=== PATIENT | male | born 1935 | race Caucasian/White ===

== ENCOUNTER 2018-01-10 18:50 | Observation (INO) | payer MEDICARE, BC ==
[2018-01-10] MEDS ORDERED: Sodium Chloride 0.9% 10 ML Syringe FLUSH PRN (19:17)
[2018-01-10] MEDS ORDERED: Sodium Chloride 0.9% 1,000 ML IV ONE (19:18)
--- NOTE | 2018-01-10 19:23 | EDM.PDOC ---
ED HPI GENERAL MEDICAL PROBLEM - General Chief Complaint: Fever Stated Complaint: Fever Time Seen by Provider: 01/10/18 19:13 Source of Information: Reports: Patient, Family, RN, RN Notes Reviewed History Limitations: Reports: No Limitations - History of Present Illness INITIAL COMMENTS - FREE TEXT/NARRATIVE: Patient presents to the ED at [facility] with a one day history of fever, chills, weakness. Patient states he feels somewhat nauseated. No chest pain. He is chronically SOB due to COPD. No cough. He denies any diarrhea. No close contacts with similar symptoms. Patient states he did have a 101.4 temp at home. He was given Tylenol prior to presentation. Onset: Today General Body Aches Pain Score (Numeric/FACES): 2 - Related Data Allergies Allergy/AdvReac Type Severity Reaction Status Date / Time aspirin Allergy Respiratory Verified 01/10/18 19:20 Distress lisinopril Allergy Wheezing Verified 01/10/18 19:20 Penicillins Allergy Cannot Verified 01/10/18 19:20 Remember Sulfa (Sulfonamide Allergy Cannot Verified 01/10/18 19:20 Antibiotics) Remember Tetracyclines Allergy Cannot Verified 01/10/18 19:20 Remember Home Meds: Home Meds Fluticasone/Salmeterol [Advair 500-50] 1 puff INH BID 09/16/13 [History] Flecainide [Tambocor] 50 mg PO BID 09/22/13 [History] Montelukast [Singulair] 10 mg PO DAILY 09/22/13 [History] Simvastatin [Zocor] 20 mg PO BEDTIME 09/22/13 [History] ALPRAZolam [Alprazolam] 0.5 mg PO BEDTIME PRN 08/10/17 [History] Albuterol Sulfate [Ventolin Hfa] 2 puff IH Q4HR PRN 08/10/17 [History] Cholecalciferol (Vitamin D3) [Vitamin D3] 2,000 unit PO DAILY 08/10/17 [History] Cyanocobalamin (Vitamin B-12) [B-12] 1,000 mcg PO DAILY 08/10/17 [History] FLUoxetine HCl [Fluoxetine HCl] 40 mg PO DAILY 08/10/17 [History] Hydrocodone/Acetaminophen [Hydrocodon-Acetaminophn 10-325] 1 each PO Q4HR PRN [History] Levothyroxine Sodium [Synthroid] 100 mcg PO DAILY 08/10/17 [History] Phytonadione [Vitamin K] 100 mcg PO DAILY 08/10/17 [History] Suzbtnnrrxfivut-Cbilirs-Kxcykd 10 ml PO Q4H PRN 08/10/17 [History] Tiotropium [Spiriva HandiHaler] 18 mcg INH DAILY 08/10/17 [History] Warfarin [Coumadin] 5 - 7.5 mg PO ASDIRECTED 08/10/17 [History] Albuterol/Ipratropium [DuoNeb 3.0-0.5 MG/3 ML] 3 ml NEB QIDRT neb 08/12/17 [Rx] Levofloxacin [Levaquin] 750 mg PO Q24H 5 Days tablet 08/12/17 [Rx] Prednisone [IJD: predniSONE] 40 mg PO WITHBREAKFAST tablet 08/12/17 [Rx] Warfarin [Coumadin] 7.5 mg PO SuTuThSa@2000 tablet 08/12/17 [Rx] Warfarin [Coumadin] 7.5 mg PO SuTuThSa@2000 tablet 08/12/17 [Rx] Past Medical History HEENT History: Reports: Allergic Rhinitis Cardiovascular History: Reports: Afib, Heart Failure, Heart Murmur, High Cholesterol Other Cardiovascular History: Bad valve Respiratory History: Reports: Asthma, Bronchitis, Recurrent, COPD Gastrointestinal History: Reports: Colon Polyp Musculoskeletal History: Reports: Other (See Below) Other Musculoskeletal History: Kyphosis Neurological History: Reports: Headaches, Chronic Psychiatric History: Reports: Anxiety - Past Surgical History GI Surgical History: Reports: Colonoscopy, Polypectomy Social & Family History - Family History Family Medical History: Noncontributory - Tobacco Use Smoking Status *Q: Never Smoker Used Tobacco, but Quit: No Second Hand Smoke Exposure: No - Alcohol Use Days Per Week of Alcohol Use: 7 Number of Drinks Per Day: 1 Total Drinks Per Week: 7 - Recreational Drug Use Recreational Drug Use: No Drug Use in Last 12 Months: No - Living Situation & Occupation Living situation: Reports: , with Spouse Occupation: Retired ED ROS GENERAL - Review of Systems Review Of Systems: See Below Constitutional: Reports: Fever, Chills, Weakness, Fatigue. Denies: Decreased Appetite Respiratory: Reports: Shortness of Breath (chronic). Denies: Cough Cardiovascular: Denies: Chest Pain, Palpitations GI/Abdominal: Denies: Abdominal Pain, Nausea, Vomiting Skin: Reports: No Symptoms Neurological: Reports: No Symptoms ED EXAM, SEPSIS - Physical Exam Exam: See Below Exam Limited By: No Limitations General Appearance: Alert, No Apparent Distress Respiratory/Chest: No Respiratory Distress, Decreased Breath Sounds, Rhonchi Cardiovascular: Normal Peripheral Pulses, Irregularly Irregular Peripheral Pulses: 2+: Radial (L), Radial (R) GI/Abdominal Exam: Normal Bowel Sounds, Soft, Non-Tender Neurological: Alert, Oriented Skin: Warm, Dry, Intact, Normal Color EKG INTERPRETATION EKG Date: 01/10/18 Time: 19:11 Rhythm: A-Fib Rate (Beats/Min): 99 [place]: Normal P-Wave: Absent QRS: Normal ST-T: Normal QT: Normal FL/PQ Interval: Absent Comparison: No Change EKG Interpretation Comments: 1. Atrial Fibrillation 2. Left anterior fascicular block 3. Nonspecific ST & T-wave abnormality Course - Vital Signs Last Recorded V/S: Last Vital Signs Temp 36.9 C 01/10/18 20:10 Pulse 90 01/10/18 20:10 Resp 20 01/10/18 20:10 BP 124/70 01/10/18 20:10 Pulse Ox 93 L 01/10/18 20:10 - Orders/Labs/Meds Orders: Active Orders 24 hr Category Date Time Status Admission Status [Patient Status] [ADT] Routine ADT 01/10/18 20:38 Active Chest 1V Frontal [CR] Stat Exams 01/10/18 19:16 Taken CULTURE BLOOD [BC] Stat Lab 01/10/18 19:00 Received CULTURE BLOOD [BC] Stat Lab 01/10/18 19:30 Received UA W/MICROSCOPIC [URIN] Stat Lab 01/10/18 19:41 Ordered Levofloxacin/Dextrose 5%-Water [Levaquin in D5W 500 MG/ Med 01/10/18 20:26 Active 100 ML] 500 mg Premix Bag 1 bag IV ONETIME Sodium Chloride 0.9% [Saline Flush] Med 01/10/18 19:17 Active 10 ml FLUSH ASDIRECTED PRN Blood Culture x2 Reflex Set [OM.PC] Stat Oth 01/10/18 19:16 Ordered Peripheral IV Insertion Adult [OM.PC] Routine Oth 01/10/18 19:17 Ordered Medication Orders Levofloxacin/Dextrose 500 mg/ (Premix) 100 mls @ 100 mls/hr IV ONETIME ONE Stop: 01/10/18 21:25 Last Admin: 01/10/18 20:35 Dose: 100 mls/hr Sodium Chloride (Saline Flush) 10 ml FLUSH ASDIRECTED PRN PRN Reason: Keep Vein Open Labs: Laboratory Tests 01/10/18 01/10/18 01/10/18 Range/Units 19:00 19:00 19:00 WBC 15.4 H (4.0-10.0) x10^3/uL RBC 4.20 L (4.5-6.0) x10^6/uL Hgb 13.7 L D (14.0-18.0) g/dL Hct 41.8 (40.0-52.0) % MCV 99.5 H (78.0-93.0) fL MCH 32.6 H (26.0-32.0) pg MCHC 32.8 (32.0-36.0) g/dL RDW Coeff of Bharati 14.0 (10.0-15.0) % Plt Count 233 (130-400) x10^3/uL Neut % (Auto) 79.9 (50.0-80.0) % Lymph % (Auto) 11.6 L (25.0-50.0) % Bartholomew % (Auto) 6.5 (2.0-11.0) % Eos % (Auto) 1.8 (0.0-4.0) % Baso % (Auto) 0.2 (0.2-1.2) % PT (9.8-11.8) SEC INR (2.0-3.5) D-Dimer, Quantitative (<=0.58) mg/LFEU Sodium 140 (136-145) mmol/L Potassium 3.9 (3.5-5.1) mmol/L Chloride 103 (98-107) mmol/L Carbon Dioxide 26 (21-32) mmol/L BUN 20 H (7-18) mg/dL Creatinine 1.1 (0.70-1.30) mg/dL Est Cr Clr Drug Dosing 48.36 mL/min Estimated GFR (MDRD) > 60 Glucose 152 H (74-106) mg/dL Lactic Acid 1.5 (0.4-2.0) mmol/L Calcium 8.9 (8.5-10.1) mg/dL Corrected Calcium 9.14 (8.5-10.1) mg/dL Total Bilirubin 0.8 (0.2-1.0) mg/dL AST 34 (15-37) U/L ALT 55 (16-63) U/L Alkaline Phosphatase 78 (46-116) U/L C-Reactive Protein 0.3 (<=0.9) mg/dL Total Protein 7.0 (6.4-8.2) g/dL Albumin 3.7 (3.4-5.0) g/dL Globulin 3.3 Albumin/Globulin Ratio 1.12 01/10/18 Range/Units 19:00 WBC (4.0-10.0) x10^3/uL RBC (4.5-6.0) x10^6/uL Hgb (14.0-18.0) g/dL Hct (40.0-52.0) % MCV (78.0-93.0) fL MCH (26.0-32.0) pg MCHC (32.0-36.0) g/dL RDW Coeff of Bharati (10.0-15.0) % Plt Count (130-400) x10^3/uL Neut % (Auto) (50.0-80.0) % Lymph % (Auto) (25.0-50.0) % Bartholomew % (Auto) (2.0-11.0) % Eos % (Auto) (0.0-4.0) % Baso % (Auto) (0.2-1.2) % PT 19.7 H D (9.8-11.8) SEC INR 1.9 L (2.0-3.5) D-Dimer, Quantitative 1.53 H (<=0.58) mg/LFEU Sodium (136-145) mmol/L Potassium (3.5-5.1) mmol/L Chloride (98-107) mmol/L Carbon Dioxide (21-32) mmol/L BUN (7-18) mg/dL Creatinine (0.70-1.30) mg/dL Est Cr Clr Drug Dosing mL/min Estimated GFR (MDRD) Glucose (74-106) mg/dL Lactic Acid (0.4-2.0) mmol/L Calcium (8.5-10.1) mg/dL Corrected Calcium (8.5-10.1) mg/dL Total Bilirubin (0.2-1.0) mg/dL AST (15-37) U/L ALT (16-63) U/L Alkaline Phosphatase (46-116) U/L C-Reactive Protein (<=0.9) mg/dL Total Protein (6.4-8.2) g/dL Albumin (3.4-5.0) g/dL Globulin Albumin/Globulin Ratio Meds: Medications Generic Name Dose Route Start Last Admin Trade Name Freq PRN Reason Stop Dose Admin Levofloxacin/Dextrose 500 mg/ 100 mls @ 100 mls/hr 01/10/18 20:26 01/10/18 20 :35 Premix IV 01/10/18 21:25 100 mls/hr ONETIME ONE Administration Sodium Chloride 10 ml 01/10/18 19:17 Saline Flush FLUSH ASDIRECTED PRN Keep Vein Open Discontinued Medications Generic Name Dose Route Start Last Admin Trade Name Freq PRN Reason Stop Dose Admin Sodium Chloride 1,000 mls @ 999 mls/hr 01/10/18 19:18 01/10/18 19:00 Normal Saline IV 01/10/18 20:18 999 mls/hr ONETIME ONE Administration Departure - Departure Time of Disposition: 20:44 Disposition: Refer to Observation Condition: Good Clinical Impression: Lung infiltrate, Leukocytosis - Discharge Information - Problem List & Annotations (1) Pulmonary infiltrate in right lung on CXR SNOMED Code(s): 664675004, 752537938 Code(s): R91.8 - OTHER NONSPECIFIC ABNORMAL FINDING OF LUNG FIELD Status: Acute Priority: Medium Current Visit: Yes (2) Leukocytosis SNOMED Code(s): 941640203, 546309813 Code(s): D72.829 - ELEVATED WHITE BLOOD CELL COUNT, UNSPECIFIED Status: Acute Priority: Medium Current Visit: Yes Qualifiers: Leukocytosis type: unspecified Qualified Code(s): D72.829 - Elevated white blood cell count, unspecified - Problem List Review Problem List Initiated/Reviewed/Updated: Yes - My Orders Last 24 Hours: My Active Orders 01/10/18 19:00 CULTURE BLOOD [BC] Stat 01/10/18 19:16 Chest 1V Frontal [CR] Stat Blood Culture x2 Reflex Set [OM.PC] Stat 01/10/18 19:17 Sodium Chloride 0.9% [Saline Flush] 10 ml FLUSH ASDIRECTED PRN Peripheral IV Insertion Adult [OM.PC] Routine 01/10/18 19:30 CULTURE BLOOD [BC] Stat 01/10/18 19:41 UA W/MICROSCOPIC [URIN] Stat 01/10/18 20:26 Levofloxacin/Dextrose 5%-Water [Levaquin in D5W 500 MG/100 ML] 500 mg Premix Bag 1 bag IV ONETIME 01/10/18 20:38 Admission Status [Patient Status] [ADT] Routine - Assessment/Plan Admission H&P: Please use this note as an admission H&P Last 24 Hours: My Active Orders 01/10/18 19:00 CULTURE BLOOD [BC] Stat 01/10/18 19:16 Chest 1V Frontal [CR] Stat Blood Culture x2 Reflex Set [OM.PC] Stat 01/10/18 19:17 Sodium Chloride 0.9% [Saline Flush] 10 ml FLUSH ASDIRECTED PRN Peripheral IV Insertion Adult [OM.PC] Routine 01/10/18 19:30 CULTURE BLOOD [BC] Stat 01/10/18 19:41 UA W/MICROSCOPIC [URIN] Stat 01/10/18 20:26 Levofloxacin/Dextrose 5%-Water [Levaquin in D5W 500 MG/100 ML] 500 mg Premix Bag 1 bag IV ONETIME 01/10/18 20:38 Admission Status [Patient Status] [ADT] Routine Assessment:: Right lower lung infiltrate Leukocytosis Plan: Patient meets sepsis criteria by RR and elevated WBC's only. Overall, patient does not appear to be acutely ill. Lactic acid and CRP normal. No fever. Xray does show a possible RLL infiltrate. Will admit to observation as I do not think the patient will need >48 hours of hospital care. Discussed with family at bedside. Agree with POC. Antibiotics were given late as the etiology of the Leukocytosis is not clear.
[2018-01-10 19:56] LABS: CHLORIDE,CL 103 mmol/L (98-107); SODIUM,NA 140 mmol/L (136-145)
[2018-01-10] MEDS ORDERED: Levofloxacin/Dextrose 5%-Water 500 MG in Premix Bag 1 BAG IV ONE (20:26)
[2018-01-10] MEDS ORDERED: Ondansetron 4 MG Tab.DIS PO PRN (21:07)
[2018-01-10] MEDS ORDERED: Acetaminophen 325 MG Tab PO PRN (21:07)
--- NOTE | 2018-01-10 21:36 | PCM.HP ---
H&P History of Present Illness - General Date of Service: 01/10/18 Admit Problem/Dx: Admission Diagnosis/Problem Admission Diagnosis/Problem Infiltrate of lung present on imaging of chest Leukocytosis Weakness Source of Information: Patient, Family, Old Records, RN, RN Notes Reviewed History Limitations: Reports: No Limitations - History of Present Illness Initial Comments - Free Text/Narative: Patient presented to the emergency room at [facility] earlier this evening with a chief complaint of fevers and weakness. The patient states that his symptoms began earlier today. According to the family patient had a fever of 101.6. The patient was given some Tylenol with good relief of the fever. The family was still concerned because the patient looked ill and still was not feeling well. The patient did not have any chest pain. The patient has chronic shortness of breath from COPD. The patient denied any abdominal pain. No nausea vomiting or diarrhea. The patient did not have any focal neurological deficits. The patient had considerable weakness of both lower extremities. The patient had been seen in clinic on every 2017 with concerns of a low- grade fever. It was felt at that time it was viral and he was sent home for symptomatic treatment. The patient again returned to the clinic on December 19 and was diagnosed with acute bronchitis and placed on azithromycin and Tessalon Pearles. The patient did finish the course of antibiotics. He states he did feel better up until today. The patient's blood work 4 days ago showed a normal white blood cell count of 8.1 and hemoglobin of 13.4. The patient has a history of chronic low hemoglobins. The patient's glucose 4 days ago was 68 with a B1 of 24. The patient's INR was therapeutic at 2.0. Onset of Symptoms: Reports: Today Symptom Onset Date: 01/10/18 General Body Aches Pain Score (Numeric/FACES): 2 - Related Data Allergies/Adverse Reactions: Allergies Allergy/AdvReac Type Severity Reaction Status Date / Time aspirin Allergy Respiratory Verified 01/10/18 19:20 Distress lisinopril Allergy Wheezing Verified 01/10/18 19:20 Penicillins Allergy Cannot Verified 01/10/18 19:20 Remember Sulfa (Sulfonamide Allergy Cannot Verified 01/10/18 19:20 Antibiotics) Remember Tetracyclines Allergy Cannot Verified 01/10/18 19:20 Remember Home Medications: Home Meds Flecainide [Tambocor] 50 mg PO BID 09/22/13 [History] Montelukast [Singulair] 10 mg PO DAILY 09/22/13 [History] Simvastatin [Zocor] 20 mg PO BEDTIME 09/22/13 [History] ALPRAZolam [Alprazolam] 0.5 mg PO BEDTIME PRN 08/10/17 [History] Albuterol Sulfate [Ventolin Hfa] 2 puff IH Q4HR PRN 08/10/17 [History] Cholecalciferol (Vitamin D3) [Vitamin D3] 2,000 unit PO DAILY 08/10/17 [History] Cyanocobalamin (Vitamin B-12) [B-12] 1,000 mcg PO DAILY 08/10/17 [History] FLUoxetine HCl [Fluoxetine HCl] 40 mg PO DAILY 08/10/17 [History] Hydrocodone/Acetaminophen [Hydrocodon-Acetaminophn 10-325] 1 each PO Q4HR PRN [History] Levothyroxine Sodium [Synthroid] 100 mcg PO DAILY 08/10/17 [History] Phytonadione [Vitamin K] 100 mcg PO DAILY 08/10/17 [History] Avoyejqpdymvfbv-Gnrfwat-Rgyeve 10 ml PO Q4H PRN 08/10/17 [History] Warfarin [Coumadin] 5 - 7.5 mg PO ASDIRECTED 08/10/17 [History] Albuterol/Ipratropium [DuoNeb 3.0-0.5 MG/3 ML] 3 ml NEB QIDRT neb 08/12/17 [Rx] Levofloxacin [Levaquin] 750 mg PO Q24H 5 Days tablet 08/12/17 [Rx] Warfarin [Coumadin] 7.5 mg PO SuTuThSa@2000 tablet 08/12/17 [Rx] Warfarin [Coumadin] 7.5 mg PO SuTuThSa@2000 tablet 08/12/17 [Rx] Prednisone [IJD: predniSONE] 5 mg PO WITHBREAKFAST 01/10/18 [History] Past Medical History HEENT History: Reports: Allergic Rhinitis Cardiovascular History: Reports: Afib, Heart Failure, Heart Murmur, High Cholesterol Other Cardiovascular History: Bad valve Respiratory History: Reports: Asthma, Bronchitis, Recurrent, COPD Gastrointestinal History: Reports: Colon Polyp Musculoskeletal History: Reports: Other (See Below) Other Musculoskeletal History: Kyphosis Neurological History: Reports: Headaches, Chronic Psychiatric History: Reports: Anxiety - Past Surgical History GI Surgical History: Reports: Colonoscopy, Polypectomy Social & Family History - Family History Family Medical History: Noncontributory - Tobacco Use Smoking Status *Q: Never Smoker Used Tobacco, but Quit: No Second Hand Smoke Exposure: No - Caffeine Use Caffeine Use: Reports: Tea - Alcohol Use Days Per Week of Alcohol Use: 7 Number of Drinks Per Day: 1 Total Drinks Per Week: 7 - Recreational Drug Use Recreational Drug Use: No Drug Use in Last 12 Months: No - Living Situation & Occupation Living situation: Reports: , with Spouse Occupation: Retired H&P Review of Systems - Review of Systems: Review Of Systems: See Below General: Reports: Fever, Chills, Weakness, Decreased Appetite Pulmonary: Reports: Shortness of Breath (chronic). Denies: Cough Cardiovascular: Denies: Chest Pain, Palpitations Gastrointestinal: Denies: Abdominal Pain, Nausea, Vomiting Skin: Reports: No Symptoms Neurological: Reports: No Symptoms. Denies: Dizziness, Headache Exam - Exam Exam: See Below - Vital Signs Vital Signs: Last Vital Signs Temp 36.8 C 01/10/18 21:07 Pulse 93 01/10/18 21:07 Resp 18 01/10/18 21:07 BP 123/79 01/10/18 21:07 Pulse Ox 92 L 01/10/18 21:07 Weight: 70.307 kg - Exam Quality Assessment: DVT Prophylaxis (on Coumadin) General: Alert, Oriented, Cooperative Neck: Supple Lungs: Normal Respiratory Effort, Rhonchi Cardiovascular: Normal S1, Normal S2, Irregular Rhythm GI/Abdominal Exam: Normal Bowel Sounds, Soft, Non-Tender Peripheral Pulses: 2+: Radial (L), Radial (R) Skin: Warm, Dry, Intact Neuro Extensive - Mental Status: Alert, Oriented x3 - Patient Data Lab Results Last 24 hrs: Laboratory Results - last 24 hr 01/10/18 01/10/18 01/10/18 Range/Units 19:00 19:00 19:00 WBC 15.4 H (4.0-10.0) x10^3/uL RBC 4.20 L (4.5-6.0) x10^6/uL Hgb 13.7 L D (14.0-18.0) g/dL Hct 41.8 (40.0-52.0) % MCV 99.5 H (78.0-93.0) fL MCH 32.6 H (26.0-32.0) pg MCHC 32.8 (32.0-36.0) g/dL RDW Coeff of Bharati 14.0 (10.0-15.0) % Plt Count 233 (130-400) x10^3/uL Neut % (Auto) 79.9 (50.0-80.0) % Lymph % (Auto) 11.6 L (25.0-50.0) % [place] % (Auto) 6.5 (2.0-11.0) % Eos % (Auto) 1.8 (0.0-4.0) % Baso % (Auto) 0.2 (0.2-1.2) % PT (9.8-11.8) SEC INR (2.0-3.5) D-Dimer, Quantitative (<=0.58) mg/LFEU Sodium 140 (136-145) mmol/L Potassium 3.9 (3.5-5.1) mmol/L Chloride 103 (98-107) mmol/L Carbon Dioxide 26 (21-32) mmol/L BUN 20 H (7-18) mg/dL Creatinine 1.1 (0.70-1.30) mg/dL Est Cr Clr Drug Dosing 48.36 mL/min Estimated GFR (MDRD) > 60 Glucose 152 H (74-106) mg/dL Lactic Acid 1.5 (0.4-2.0) mmol/L Calcium 8.9 (8.5-10.1) mg/dL Corrected Calcium 9.14 (8.5-10.1) mg/dL Total Bilirubin 0.8 (0.2-1.0) mg/dL AST 34 (15-37) U/L ALT 55 (16-63) U/L Alkaline Phosphatase 78 (46-116) U/L C-Reactive Protein 0.3 (<=0.9) mg/dL Total Protein 7.0 (6.4-8.2) g/dL Albumin 3.7 (3.4-5.0) g/dL Globulin 3.3 Albumin/Globulin Ratio 1.12 01/10/18 Range/Units 19:00 WBC (4.0-10.0) x10^3/uL RBC (4.5-6.0) x10^6/uL Hgb (14.0-18.0) g/dL Hct (40.0-52.0) % MCV (78.0-93.0) fL MCH (26.0-32.0) pg MCHC (32.0-36.0) g/dL RDW Coeff of Bharati (10.0-15.0) % Plt Count (130-400) x10^3/uL Neut % (Auto) (50.0-80.0) % Lymph % (Auto) (25.0-50.0) % [place] % (Auto) (2.0-11.0) % Eos % (Auto) (0.0-4.0) % Baso % (Auto) (0.2-1.2) % PT 19.7 H D (9.8-11.8) SEC INR 1.9 L (2.0-3.5) D-Dimer, Quantitative 1.53 H (<=0.58) mg/LFEU Sodium (136-145) mmol/L Potassium (3.5-5.1) mmol/L Chloride (98-107) mmol/L Carbon Dioxide (21-32) mmol/L BUN (7-18) mg/dL Creatinine (0.70-1.30) mg/dL Est Cr Clr Drug Dosing mL/min Estimated GFR (MDRD) Glucose (74-106) mg/dL Lactic Acid (0.4-2.0) mmol/L Calcium (8.5-10.1) mg/dL Corrected Calcium (8.5-10.1) mg/dL Total Bilirubin (0.2-1.0) mg/dL AST (15-37) U/L ALT (16-63) U/L Alkaline Phosphatase (46-116) U/L C-Reactive Protein (<=0.9) mg/dL Total Protein (6.4-8.2) g/dL Albumin (3.4-5.0) g/dL Globulin Albumin/Globulin Ratio Result Diagrams: 01/10/18 19:00 01/10/18 19:00 [place] Results Last 24 hrs: Microbiology 01/10/18 20:49 Influenza Type A Antigen Screen - Final Nasopharyngeal Swab NEGATIVE INFLUENZA A VIRUS AG Influenza Type B Antigen Screen - Final NEGATIVE INFLUENZA B VIRUS AG *Q Meaningful Use (ADM) - VTE *Q VTE Mechanical Contraindications *Q: At Risk for Falls - Problem List (1) Pulmonary infiltrate in right lung on CXR SNOMED Code(s): 545235706, 385397606 ICD Code: R91.8 - OTHER NONSPECIFIC ABNORMAL FINDING OF LUNG FIELD Status: Acute Priority: Medium Current Visit: Yes (2) Leukocytosis SNOMED Code(s): 875536584, 172871129 ICD Code: D72.829 - ELEVATED WHITE BLOOD CELL COUNT, UNSPECIFIED Status: Acute Priority: Medium Current Visit: Yes Qualifiers: Leukocytosis type: unspecified Qualified Code(s): D72.829 - Elevated white blood cell count, unspecified (3) Chronic diastolic (congestive) heart failure SNOMED Code(s): 413559248, 565653573 ICD Code: I50.32 - CHRONIC DIASTOLIC (CONGESTIVE) HEART FAILURE Status: Chronic Current Visit: No (4) Non-rheumatic mitral regurgitation SNOMED Code(s): 024873335 ICD Code: I34.0 - NONRHEUMATIC MITRAL (VALVE) INSUFFICIENCY Status: Chronic Current Visit: No (5) Uncomplicated severe persistent asthma SNOMED Code(s): 700275261 ICD Code: J45.50 - SEVERE PERSISTENT ASTHMA, UNCOMPLICATED Status: Chronic Priority: Medium Current Visit: No (6) Hypothyroidism SNOMED Code(s): 08038595 ICD Code: E03.9 - HYPOTHYROIDISM, UNSPECIFIED Status: Chronic Current Visit: No Qualifiers: Hypothyroidism 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 transplanted heart: [place] heart Associated angina: without angina Qualified Code(s): I25.10 - Atherosclerotic heart disease of [place] coronary artery without angina pectoris Problem List Initiated/Reviewed/Updated: Yes Orders Last 24hrs: Active Orders 24 hr Category Date Time Status Patient Status [ADT] Routine ADT 01/10/18 21:07 Active Ambulate [RC] Q2HWA Care 01/10/18 21:07 Active Height and Weight [RC] UPON Care 01/10/18 21:07 Active Intake and Output [RC] QSHIFT Care 01/10/18 21:08 Active Oxygen Therapy [RC] PRN Care 01/10/18 21:07 Active VTE/DVT Education [RC] PER UNIT ROUTINE Care 01/10/18 21:07 Active Vital Signs [RC] Q4H Care 01/10/18 21:07 Active Heart Healthy Diet [DIET] Diet 01/10/18 Breakfast Active Chest 1V Frontal [CR] Stat Exams 01/10/18 19:16 Taken CULTURE BLOOD [BC] Stat Lab 01/10/18 19:00 Received CULTURE BLOOD [BC] Stat Lab 01/10/18 19:30 Received INFLUENZA A+B AG SCREEN [RM] Stat Lab 01/10/18 20:49 Ordered UA W/MICROSCOPIC [URIN] Stat Lab 01/10/18 19:41 Ordered Acetaminophen [Tylenol] Med 01/10/18 21:07 Active 650 mg PO Q4H PRN Ondansetron [Zofran ODT] Med 01/10/18 21:07 Active 4 mg PO Q6H PRN Sodium Chloride 0.9% [Saline Flush] Med 01/10/18 19:17 Active 10 ml FLUSH ASDIRECTED PRN Blood Culture x2 Reflex Set [OM.PC] Stat Oth 01/10/18 19:16 Ordered Peripheral IV Insertion Adult [OM.PC] Routine Oth 01/10/18 19:17 Ordered Resuscitation Status Routine Resus Stat 01/10/18 21:07 Ordered Medication Orders Acetaminophen (Tylenol) 650 mg PO Q4H PRN PRN Reason: Pain (Mild 1-3)/fever Ondansetron HCl (Zofran Odt) 4 mg PO Q6H PRN PRN Reason: nausea, able to take PO Sodium Chloride (Saline Flush) 10 ml FLUSH ASDIRECTED PRN PRN Reason: Keep Vein Open Assessment/Plan Comment:: 82-year-old male patient with a past medical history of coronary artery disease , COPD, hypothyroidism, chronic atrial fibrillation, and heart failure is admitted to the observation unit at [facility] for right lung infiltrate, leukocytosis, and weakness. The patient will be started on gentle IV fluid rehydration given his history of heart failure. The patient's last echocardiogram from November 2017 showed an EF of 55%. We will start the patient on levofloxacin every 24 hours IV. We'll continue the patient's home medications. We will recheck blood work in the morning. Dual nebs every 4 hours. DVT prophylaxis will continue the patient on his Coumadin. The patient's INR today was 1.9. We'll continue the same dose of Coumadin. We will recheck INRs daily. The patient needs to ambulate every couple of hours. We will also do incentive spirometry with cough and deep breathing. I do not anticipate an admission greater than 48 hours. The patient is a full code per his wishes. The patient does wish to be transferred to a high-level care should the need arise.
[2018-01-10] MEDS ORDERED: WARFARIN 5 MG PO ONE (22:00)
[2018-01-10] MEDS: Albuterol/Ipratropium 3.0-0.5 MG/3 ML Neb Soln NEB SCH (22:15)
[2018-01-10] MEDS: Lactated Ringers 1,000 ML IV SCH (22:23)
[2018-01-10] MEDS: methylPREDNISolone Sodium Succinate 40 MG/1 ML SDV IVPUSH SCH (22:28)
[2018-01-10] MEDS ORDERED: Montelukast 10 MG Tab***OWN MED PO ONE (23:00)
[2018-01-10] MEDS ORDERED: SIMVASTATIN 20 MG PO ONE (23:00)
[2018-01-10] MEDS: HYDROCODONE PO PRN (23:05)
[2018-01-10] MEDS: ACETAMINOPHEN PO PRN (23:05)
[2018-01-10] MEDS: ALPRAZOLAM 0.5 MG PO PRN (23:05)
[2018-01-11] MEDS: Albuterol/Ipratropium 3.0-0.5 MG/3 ML Neb Soln NEB SCH ×6 (02:00→22:01)
[2018-01-11] MEDS: FLECAINIDE 100 MG PO SCH ×2 (07:31→20:14)
[2018-01-11] MEDS: Phytonadione 100 MCG Tab PO SCH (07:31)
[2018-01-11] MEDS ORDERED: LEVOTHYROXINE 100 MCG PO SCH (08:00)
[2018-01-11 08:33] LABS: CHLORIDE,CL 102 mmol/L (98-107); SODIUM,NA 137 mmol/L (136-145)
[2018-01-11] MEDS: methylPREDNISolone Sodium Succinate 40 MG/1 ML SDV IVPUSH SCH ×2 (10:03→21:55)
[2018-01-11] MEDS ORDERED: Iopamidol 612 MG/ML 100 ML Bottle IVPUSH ONE (10:11)
[2018-01-11] MEDS: Lactated Ringers 1,000 ML IV SCH (12:08)
[2018-01-11] MEDS ORDERED: Lactated Ringers 1,000 ML IV SCH (12:15)
[2018-01-11] MEDS: HYDROCODONE PO PRN ×2 (12:34→21:59)
[2018-01-11] MEDS: ACETAMINOPHEN PO PRN ×2 (12:34→21:59)
[2018-01-11] MEDS ORDERED: Montelukast 10 MG Tab***OWN MED PO SCH (20:00)
[2018-01-11] MEDS ORDERED: Levofloxacin/Dextrose 5%-Water 250 MG in Premix Bag 1 BAG IV SCH (20:00)
[2018-01-11] MEDS ORDERED: Levofloxacin/Dextrose 5%-Water 500 MG in Premix Bag 1 BAG IV SCH (20:00)
[2018-01-11] MEDS ORDERED: SIMVASTATIN 20 MG PO SCH (20:00)
[2018-01-11] MEDS ORDERED: WARFARIN 5 MG PO SCH (20:00)
--- NOTE | 2018-01-11 21:44 | PCM.DCSUM1 ---
Discharge Summary - Hospital Course Free Text/Narrative:: Pt. stated this AM that he was "feeling better" and was requesting discharge. He states that his breathing has improved. He is getting duoneb breathing treatments. Pt. is currently getting solu medrol 40mg BID as well. Pt. WBCs did increase to greater than 17,000. His lactic acid did increase as well, but continues to be within the normal range. This morning, it decreased down to 14,000. Currently on renally adjusted IV levaquin. Pt. did have a + d dimer on admit; subsequently he did undergo a CT angiogram of his chest which was negative for pulmonary embolism, but did reveal bilateral lower lobe infiltrates. Pt. has been ambulating and using his incentive spirometry. Physicalk therapy did work with the pt. and he was able to ambulate without any difficulty and no significant increased resp. distress. - Discharge Data Discharge Date: 01/12/18 Discharge Disposition: Home, Self-Care 01 Condition: Good - Discharge Diagnosis/Problem(s) (1) COPD exacerbation SNOMED Code(s): 583503063 ICD Code: J44.1 - CHRONIC OBSTRUCTIVE PULMONARY DISEASE W (ACUTE) EXACERBATION Status: Acute Current Visit: Yes (2) Community acquired bacterial pneumonia SNOMED Code(s): 738263806, 214662573 ICD Code: J15.9 - UNSPECIFIED BACTERIAL PNEUMONIA Status: Acute Current Visit: Yes (3) Paroxysmal atrial fibrillation SNOMED Code(s): 118149156 ICD Code: I48.0 - PAROXYSMAL ATRIAL FIBRILLATION Status: Chronic Priority : Medium Current Visit: Yes (4) Chronic diastolic (congestive) heart failure SNOMED Code(s): 097201392, 132356848 ICD Code: I50.32 - CHRONIC DIASTOLIC (CONGESTIVE) HEART FAILURE Status: Chronic Current Visit: No - Patient Instructions Diet: Low Sodium Driving: Do Not Drive - Discharge Plan Prescriptions/Med Rec: Levofloxacin [Levaquin] 500 mg PO DAILY #8 tab Prednisone [IJD: predniSONE] 40 mg PO WITHBREAKFAST #6 tab Home Medications: Home Meds Flecainide [Tambocor] 50 mg PO BID 09/22/13 [History] Montelukast [Singulair] 10 mg PO DAILY 09/22/13 [History] Simvastatin [Zocor] 20 mg PO BEDTIME 09/22/13 [History] ALPRAZolam [Alprazolam] 0.5 mg PO BEDTIME PRN 08/10/17 [History] Albuterol Sulfate [Ventolin Hfa] 2 puff IH Q4HR PRN 08/10/17 [History] Cholecalciferol (Vitamin D3) [Vitamin D3] 2,000 unit PO DAILY 08/10/17 [History] Cyanocobalamin (Vitamin B-12) [B-12] 1,000 mcg PO DAILY 08/10/17 [History] FLUoxetine HCl [Fluoxetine HCl] 40 mg PO DAILY 08/10/17 [History] Hydrocodone/Acetaminophen [Hydrocodon-Acetaminophn 10-325] 1 each PO Q4HR PRN [History] Levothyroxine Sodium [Synthroid] 100 mcg PO DAILY 08/10/17 [History] Phytonadione [Vitamin K] 100 mcg PO DAILY 08/10/17 [History] Gcbhwgeartbzxyv-Xxsgfay-Xwjnlr 10 ml PO Q4H PRN 08/10/17 [History] Warfarin [Coumadin] 5 - 7.5 mg PO ASDIRECTED 08/10/17 [History] Albuterol/Ipratropium [DuoNeb 3.0-0.5 MG/3 ML] 3 ml NEB QIDRT neb 08/12/17 [Rx] Warfarin [Coumadin] 7.5 mg PO SuTuThSa@2000 tablet 08/12/17 [Rx] Warfarin [Coumadin] 7.5 mg PO SuTuThSa@2000 tablet 08/12/17 [Rx] Levofloxacin [Levaquin] 500 mg PO DAILY #8 tab 01/12/18 [Rx] Prednisone [IJD: predniSONE] 40 mg PO WITHBREAKFAST #6 tab 01/12/18 [Rx] Patient Handouts: Chronic Obstructive Pulmonary Disease Exacerbation, Easy-to- Read, Community-Acquired Pneumonia, Adult, [id number] Referrals: Zoie Conteh MD [Primary Care Provider] - - General Info Date of Service: 01/12/18 Admission Dx/Problem (Free Text: Community acquired pneumonia COPD exacerbation Functional Status: Reports: Pain Controlled - Review of Systems General: Reports: No Symptoms HEENT: Reports: No Symptoms Pulmonary: Reports: Cough, Sputum. Denies: Shortness of Breath, Pleuritic Chest Pain, Hemoptysis Cardiovascular: Reports: No Symptoms Gastrointestinal: Reports: No Symptoms Genitourinary: Reports: No Symptoms Musculoskeletal: Reports: No Symptoms Skin: Reports: No Symptoms Neurological: Reports: No Symptoms Psychiatric: Reports: No Symptoms - Patient Data Vitals - Most Recent: Last Vital Signs Temp 37.0 C 01/11/18 17:32 Pulse 83 01/11/18 17:32 Resp 20 01/11/18 17:32 BP 113/63 01/11/18 17:32 Pulse Ox 95 01/11/18 17:32 Weight - Most Recent: 72.938 kg I&O - Last 24 hours: Intake & Output 01/11/18 01/11/18 01/11/18 06:59 14:59 22:59 Intake Total 0658 958 8761 Output Total 600 800 600 Balance 671 -190 683 Lab Results - Last 24 hrs: Laboratory Results - last 24 hr 01/10/18 01/11/18 01/11/18 Range/Units 21:55 07:27 07:27 WBC 17.8 H (4.0-10.0) x10^3/uL RBC 4.02 L (4.5-6.0) x10^6/uL Hgb 13.2 L (14.0-18.0) g/dL Hct 40.2 (40.0-52.0) % MCV 100.0 H (78.0-93.0) fL MCH 32.8 H (26.0-32.0) pg MCHC 32.8 (32.0-36.0) g/dL RDW Coeff of Bharati 13.9 (10.0-15.0) % Plt Count 196 (130-400) x10^3/uL Neut % (Auto) 91.9 H (50.0-80.0) % Lymph % (Auto) 3.1 L (25.0-50.0) % [place] % (Auto) 4.9 (2.0-11.0) % Eos % (Auto) 0.0 (0.0-4.0) % Baso % (Auto) 0.1 L (0.2-1.2) % PT 22.8 H (9.8-11.8) SEC INR 2.2 (2.0-3.5) Sodium (136-145) mmol/L Potassium (3.5-5.1) mmol/L Chloride (98-107) mmol/L Carbon Dioxide (21-32) mmol/L BUN (7-18) mg/dL Creatinine (0.70-1.30) mg/dL Est Cr Clr Drug Dosing mL/min Estimated GFR (MDRD) Glucose (74-106) mg/dL Lactic Acid (0.4-2.0) mmol/L Calcium (8.5-10.1) mg/dL Magnesium (1.8-2.4) mg/dL Urine Color Yellow (YELLOW) Urine Appearance Clear (CLEAR) Urine pH 5.0 (5.0-8.0) Ur Specific [place] 1.025 Urine Protein Negative (NEGATIVE) mg/dL Urine Glucose (UA) Negative (NEGATIVE) mg/dL Urine Ketones Trace H (NEGATIVE) mg/dL Urine Occult Blood Negative (NEGATIVE) Urine Nitrite Negative (NEGATIVE) Urine Bilirubin Negative (NEGATIVE) Urine Urobilinogen 0.2 (0.2) EU/dL Ur Leukocyte Esterase Negative (NEGATIVE) Urine RBC 0-5 (NOT SEEN) /HPF Urine WBC 0-5 (NOT SEEN) /HPF Ur Squamous Epith Cells Not seen (NEGATIVE) /HPF Urine Bacteria Few H (NEGATIVE) /HPF Urine Mucus Rare H (NEGATIVE) /LPF 01/11/18 01/11/18 Range/Units 07:27 07:27 WBC (4.0-10.0) x10^3/uL RBC (4.5-6.0) x10^6/uL Hgb (14.0-18.0) g/dL Hct (40.0-52.0) % MCV (78.0-93.0) fL MCH (26.0-32.0) pg MCHC (32.0-36.0) g/dL RDW Coeff of Bharati (10.0-15.0) % Plt Count (130-400) x10^3/uL Neut % (Auto) (50.0-80.0) % Lymph % (Auto) (25.0-50.0) % [place] % (Auto) (2.0-11.0) % Eos % (Auto) (0.0-4.0) % Baso % (Auto) (0.2-1.2) % PT (9.8-11.8) SEC INR (2.0-3.5) Sodium 137 (136-145) mmol/L Potassium 4.5 (3.5-5.1) mmol/L Chloride 102 (98-107) mmol/L Carbon Dioxide 27 (21-32) mmol/L BUN 17 (7-18) mg/dL Creatinine 1.1 (0.70-1.30) mg/dL Est Cr Clr Drug Dosing 48.36 mL/min Estimated GFR (MDRD) > 60 Glucose 154 H (74-106) mg/dL Lactic Acid 1.9 (0.4-2.0) mmol/L Calcium 8.9 (8.5-10.1) mg/dL Magnesium 1.6 L (1.8-2.4) mg/dL Urine Color (YELLOW) Urine Appearance (CLEAR) Urine pH (5.0-8.0) Ur Specific [place] Urine Protein (NEGATIVE) mg/dL Urine Glucose (UA) (NEGATIVE) mg/dL Urine Ketones (NEGATIVE) mg/dL Urine Occult Blood (NEGATIVE) Urine Nitrite (NEGATIVE) Urine Bilirubin (NEGATIVE) Urine Urobilinogen (0.2) EU/dL Ur Leukocyte Esterase (NEGATIVE) Urine RBC (NOT SEEN) /HPF Urine WBC (NOT SEEN) /HPF Ur Squamous Epith Cells (NEGATIVE) /HPF Urine Bacteria (NEGATIVE) /HPF Urine Mucus (NEGATIVE) /LPF JEFF Results - Last 24 hrs: Microbiology 01/10/18 19:30 Aerobic Blood Culture - Preliminary Blood - Venous - Lab Draw NO GROWTH AFTER 1 DAY Anaerobic Blood Culture - Preliminary NO GROWTH AFTER 1 DAY 01/10/18 19:00 Aerobic Blood Culture - Preliminary Blood - Venous NO GROWTH AFTER 1 DAY Anaerobic Blood Culture - Preliminary NO GROWTH AFTER 1 DAY 01/10/18 20:49 Influenza Type A Antigen Screen - Final Nasopharyngeal Swab NEGATIVE INFLUENZA A VIRUS AG Influenza Type B Antigen Screen - Final NEGATIVE INFLUENZA B VIRUS AG Med Orders - Current: Current Medications Acetaminophen (Tylenol) 650 mg PO Q4H PRN PRN Reason: Pain (Mild 1-3)/fever Last Admin: 01/10/18 22:25 Dose: 650 mg Hydrocodone Bitart/Acetaminophen ([place] 325-10 Mg) 1 tab PO Q4HR PRN PRN Reason: Pain (moderate 4-6) Last Admin: 01/11/18 12:34 Dose: 1 tab Albuterol/Ipratropium (Duoneb 3.0-0.5 Mg/3 Ml) 3 ml NEB Q4HRRT [facility] Last Admin: 01/11/18 18:29 Dose: 3 ml Alprazolam (Xanax) 0.5 mg PO BEDTIME PRN PRN Reason: Insomnia Last Admin: 01/10/18 23:05 Dose: 0.5 mg Lactated Ringer's (Ringers, Lactated) 1,000 mls @ 75 mls/hr IV ASDIRECTED [facility] Last Admin: 01/11/18 12:08 Dose: 75 mls/hr Levofloxacin/Dextrose 250 mg/ (Premix) 50 mls @ 50 mls/hr IV Q24H [facility] Last Admin: 01/11/18 20:20 Dose: 50 mls/hr Levothyroxine Sodium (Synthroid) 100 mcg PO DAILY@0700 [facility] Methylprednisolone Sodium Succinate (Solu-Medrol) 40 mg IVPUSH Q12H [facility] Last Admin: 01/11/18 10:03 Dose: 40 mg Montelukast Sodium (Singulair) 10 mg PO BEDTIME [facility] Last Admin: 01/11/18 20:15 Dose: 10 mg Flecainide 100 Mg (TabOwn Med) 0.5 each PO BID [facility] Last Admin: 01/11/18 20:14 Dose: 0.5 each (Fluoxetine Hcl [ Fluoxetine Hcl] 40 Mg)Own Med 40 mg PO DAILY [facility] Last Admin: 01/11/18 07:33 Dose: 40 mg Ondansetron HCl (Zofran Odt) 4 mg PO Q6H PRN PRN Reason: nausea, able to take PO Phytonadione (Vitamin K) 100 mcg PO DAILY [facility] Last Admin: 01/11/18 07:31 Dose: 100 mcg Simvastatin (Zocor) 20 mg PO BEDTIME [facility] Last Admin: 01/11/18 20:14 Dose: 20 mg Sodium Chloride (Saline Flush) 10 ml FLUSH ASDIRECTED PRN PRN Reason: Keep Vein Open Warfarin Sodium (Coumadin) 7.5 mg PO [email or web address]@1999 [facility] Warfarin Sodium (Coumadin) 5 mg PO SuTuWeThSa@1999 [facility] Last Admin: 01/11/18 20:11 Dose: 5 mg Discontinued Medications Sodium Chloride (Normal Saline) 1,000 mls @ 999 mls/hr IV ONETIME ONE Stop: 01/10/18 20:18 Last Admin: 01/10/18 19:00 Dose: 999 mls/hr Levofloxacin/Dextrose 500 mg/ (Premix) 100 mls @ 100 mls/hr IV ONETIME ONE Stop: 01/10/18 21:25 Last Admin: 01/10/18 20:35 Dose: 100 mls/hr Levofloxacin/Dextrose 500 mg/ (Premix) 100 mls @ 100 mls/hr IV Q24H [facility] Lactated Ringer's (Ringers, Lactated) 1,000 mls @ 75 mls/hr IV ASDIRECTED [facility] Iopamidol (Isovue-300 (61%)) 100 ml IVPUSH ONETIME ONE Stop: 01/11/18 10:12 Last Admin: 01/11/18 10:32 Dose: 100 ml Levothyroxine Sodium (Synthroid) 100 mcg PO DAILY [facility] Last Admin: 01/11/18 07:31 Dose: 100 mcg Montelukast Sodium (Singulair) 10 mg PO ONETIME ONE Stop: 01/10/18 23:01 Last Admin: 01/10/18 23:04 Dose: 10 mg Simvastatin (Zocor) 20 mg PO ONETIME ONE Stop: 01/10/18 23:01 Last Admin: 01/10/18 23:04 Dose: 20 mg Warfarin Sodium (Coumadin) 5 mg PO ONETIME ONE Stop: 01/10/18 22:01 Last Admin: 01/10/18 23:04 Dose: 5 mg - Exam General: Reports: Alert, Oriented HEENT: Reports: Pupils Equal, Pupils Reactive, EOMI, Mucous Membr. Moist/[place] Neck: Reports: Supple Lungs: Reports: Normal Respiratory Effort, Decreased Breath Sounds, Crackles. Denies: Rales, Rhonchi, Wheezing Cardiovascular: Reports: Regular Rate, Regular Rhythm GI/Abdominal Exam: Normal Bowel Sounds, Soft, Non-Tender, No Organomegaly, No Distention, No Abnormal Bruit, No Mass, Pelvis Stable (Male) Exam: Deferred Rectal (Males) Exam: Deferred Back Exam: Reports: Normal Inspection, Full Range of Motion Extremities: Normal Inspection, Normal Range of Motion, Non-Tender, No Pedal Edema, Normal Capillary Refill Skin: Reports: Warm, Dry, Intact Neurological: Reports: No New Focal Deficit Psy/Mental Status: Reports: Alert, Normal Affect, Normal Mood *Q Meaningful Use (DIS) - VTE *Q VTE Mechanical Contraindications *Q: At Risk for Falls
--- NOTE | 2018-01-11 21:51 | PCM.PN ---
- General Info Date of Service: 01/11/18 Admission Dx/Problem (Free Text): community acquired pneumonia with COPD exacerbation Subjective Update: Pt. stated this AM that he was "feeling better" and was requesting discharge. He states that his breathing has improved. He is getting duoneb breathing treatments. Pt. is currently getting solu medrol 40mg BID as well. Pt. WBCs did increase to greater than 17,000. His lactic acid did increase as well, but continues to be within the normal range. Pt. did have a + d dimer on admit; subsequently he did undergo a CT angiogram of his chest which was negative for pulmonary embolism, but did reveal bilateral lower lobe infiltrates. Pt. has been ambulating and using his incentive spirometry. Functional Status: Reports: Pain Controlled - Review of Systems General: Reports: No Symptoms HEENT: Reports: No Symptoms Pulmonary: Reports: Shortness of Breath, Cough, Sputum Cardiovascular: Reports: No Symptoms Gastrointestinal: Reports: No Symptoms Genitourinary: Reports: No Symptoms Musculoskeletal: Reports: No Symptoms Skin: Reports: No Symptoms Neurological: Reports: No Symptoms Psychiatric: Reports: No Symptoms - Patient Data Vitals - Most Recent: Last Vital Signs Temp 37.0 C 01/11/18 17:32 Pulse 83 01/11/18 17:32 Resp 20 01/11/18 17:32 BP 113/63 01/11/18 17:32 Pulse Ox 95 01/11/18 17:32 Weight - Most Recent: 72.938 kg I&O - Last 24 Hours: Intake & Output 01/11/18 01/11/18 01/11/18 06:59 14:59 22:59 Intake Total 6768 570 1928 Output Total 600 800 600 Balance 671 -190 683 Lab Results Last 24 Hours: Laboratory Results - last 24 hr 01/10/18 01/11/18 01/11/18 Range/Units 21:55 07:27 07:27 WBC 17.8 H (4.0-10.0) x10^3/uL RBC 4.02 L (4.5-6.0) x10^6/uL Hgb 13.2 L (14.0-18.0) g/dL Hct 40.2 (40.0-52.0) % MCV 100.0 H (78.0-93.0) fL MCH 32.8 H (26.0-32.0) pg MCHC 32.8 (32.0-36.0) g/dL RDW Coeff of Bharati 13.9 (10.0-15.0) % Plt Count 196 (130-400) x10^3/uL Neut % (Auto) 91.9 H (50.0-80.0) % Lymph % (Auto) 3.1 L (25.0-50.0) % [place] % (Auto) 4.9 (2.0-11.0) % Eos % (Auto) 0.0 (0.0-4.0) % Baso % (Auto) 0.1 L (0.2-1.2) % PT 22.8 H (9.8-11.8) SEC INR 2.2 (2.0-3.5) Sodium (136-145) mmol/L Potassium (3.5-5.1) mmol/L Chloride (98-107) mmol/L Carbon Dioxide (21-32) mmol/L BUN (7-18) mg/dL Creatinine (0.70-1.30) mg/dL Est Cr Clr Drug Dosing mL/min Estimated GFR (MDRD) Glucose (74-106) mg/dL Lactic Acid (0.4-2.0) mmol/L Calcium (8.5-10.1) mg/dL Magnesium (1.8-2.4) mg/dL Urine Color Yellow (YELLOW) Urine Appearance Clear (CLEAR) Urine pH 5.0 (5.0-8.0) Ur Specific [place] 1.025 Urine Protein Negative (NEGATIVE) mg/dL Urine Glucose (UA) Negative (NEGATIVE) mg/dL Urine Ketones Trace H (NEGATIVE) mg/dL Urine Occult Blood Negative (NEGATIVE) Urine Nitrite Negative (NEGATIVE) Urine Bilirubin Negative (NEGATIVE) Urine Urobilinogen 0.2 (0.2) EU/dL Ur Leukocyte Esterase Negative (NEGATIVE) Urine RBC 0-5 (NOT SEEN) /HPF Urine WBC 0-5 (NOT SEEN) /HPF Ur Squamous Epith Cells Not seen (NEGATIVE) /HPF Urine Bacteria Few H (NEGATIVE) /HPF Urine Mucus Rare H (NEGATIVE) /LPF 01/11/18 01/11/18 Range/Units 07:27 07:27 WBC (4.0-10.0) x10^3/uL RBC (4.5-6.0) x10^6/uL Hgb (14.0-18.0) g/dL Hct (40.0-52.0) % MCV (78.0-93.0) fL MCH (26.0-32.0) pg MCHC (32.0-36.0) g/dL RDW Coeff of Bharati (10.0-15.0) % Plt Count (130-400) x10^3/uL Neut % (Auto) (50.0-80.0) % Lymph % (Auto) (25.0-50.0) % [place] % (Auto) (2.0-11.0) % Eos % (Auto) (0.0-4.0) % Baso % (Auto) (0.2-1.2) % PT (9.8-11.8) SEC INR (2.0-3.5) Sodium 137 (136-145) mmol/L Potassium 4.5 (3.5-5.1) mmol/L Chloride 102 (98-107) mmol/L Carbon Dioxide 27 (21-32) mmol/L BUN 17 (7-18) mg/dL Creatinine 1.1 (0.70-1.30) mg/dL Est Cr Clr Drug Dosing 48.36 mL/min Estimated GFR (MDRD) > 60 Glucose 154 H (74-106) mg/dL Lactic Acid 1.9 (0.4-2.0) mmol/L Calcium 8.9 (8.5-10.1) mg/dL Magnesium 1.6 L (1.8-2.4) mg/dL Urine Color (YELLOW) Urine Appearance (CLEAR) Urine pH (5.0-8.0) Ur Specific [place] Urine Protein (NEGATIVE) mg/dL Urine Glucose (UA) (NEGATIVE) mg/dL Urine Ketones (NEGATIVE) mg/dL Urine Occult Blood (NEGATIVE) Urine Nitrite (NEGATIVE) Urine Bilirubin (NEGATIVE) Urine Urobilinogen (0.2) EU/dL Ur Leukocyte Esterase (NEGATIVE) Urine RBC (NOT SEEN) /HPF Urine WBC (NOT SEEN) /HPF Ur Squamous Epith Cells (NEGATIVE) /HPF Urine Bacteria (NEGATIVE) /HPF Urine Mucus (NEGATIVE) /LPF [place] Results Last 24 Hours: Microbiology 01/10/18 19:30 Aerobic Blood Culture - Preliminary Blood - Venous - Lab Draw NO GROWTH AFTER 1 DAY Anaerobic Blood Culture - Preliminary NO GROWTH AFTER 1 DAY 01/10/18 19:00 Aerobic Blood Culture - Preliminary Blood - Venous NO GROWTH AFTER 1 DAY Anaerobic Blood Culture - Preliminary NO GROWTH AFTER 1 DAY 01/10/18 20:49 Influenza Type A Antigen Screen - Final Nasopharyngeal Swab NEGATIVE INFLUENZA A VIRUS AG Influenza Type B Antigen Screen - Final NEGATIVE INFLUENZA B VIRUS AG Med Orders - Current: Current Medications Acetaminophen (Tylenol) 650 mg PO Q4H PRN PRN Reason: Pain (Mild 1-3)/fever Last Admin: 01/10/18 22:25 Dose: 650 mg Hydrocodone Bitart/Acetaminophen ([place] 325-10 Mg) 1 tab PO Q4HR PRN PRN Reason: Pain (moderate 4-6) Last Admin: 01/11/18 12:34 Dose: 1 tab Albuterol/Ipratropium (Duoneb 3.0-0.5 Mg/3 Ml) 3 ml NEB Q4HRRT [facility] Last Admin: 01/11/18 18:29 Dose: 3 ml Alprazolam (Xanax) 0.5 mg PO BEDTIME PRN PRN Reason: Insomnia Last Admin: 01/10/18 23:05 Dose: 0.5 mg Lactated Ringer's (Ringers, Lactated) 1,000 mls @ 75 mls/hr IV ASDIRECTED [facility] Last Admin: 01/11/18 12:08 Dose: 75 mls/hr Levofloxacin/Dextrose 250 mg/ (Premix) 50 mls @ 50 mls/hr IV Q24H [facility] Last Admin: 01/11/18 20:20 Dose: 50 mls/hr Levothyroxine Sodium (Synthroid) 100 mcg PO DAILY@0700 [facility] Methylprednisolone Sodium Succinate (Solu-Medrol) 40 mg IVPUSH Q12H [facility] Last Admin: 01/11/18 10:03 Dose: 40 mg Montelukast Sodium (Singulair) 10 mg PO BEDTIME [facility] Last Admin: 01/11/18 20:15 Dose: 10 mg Flecainide 100 Mg (TabOwn Med) 0.5 each PO BID [facility] Last Admin: 01/11/18 20:14 Dose: 0.5 each (Fluoxetine Hcl [ Fluoxetine Hcl] 40 Mg)Own Med 40 mg PO DAILY [facility] Last Admin: 01/11/18 07:33 Dose: 40 mg Ondansetron HCl (Zofran Odt) 4 mg PO Q6H PRN PRN Reason: nausea, able to take PO Phytonadione (Vitamin K) 100 mcg PO DAILY [facility] Last Admin: 01/11/18 07:31 Dose: 100 mcg Simvastatin (Zocor) 20 mg PO BEDTIME [facility] Last Admin: 01/11/18 20:14 Dose: 20 mg Sodium Chloride (Saline Flush) 10 ml FLUSH ASDIRECTED PRN PRN Reason: Keep Vein Open Warfarin Sodium (Coumadin) 7.5 mg PO MoFr@1999 [facility] Warfarin Sodium (Coumadin) 5 mg PO SuTuWeThSa@1999 [facility] Last Admin: 01/11/18 20:11 Dose: 5 mg Discontinued Medications Sodium Chloride (Normal Saline) 1,000 mls @ 999 mls/hr IV ONETIME ONE Stop: 01/10/18 20:18 Last Admin: 01/10/18 19:00 Dose: 999 mls/hr Levofloxacin/Dextrose 500 mg/ (Premix) 100 mls @ 100 mls/hr IV ONETIME ONE Stop: 01/10/18 21:25 Last Admin: 01/10/18 20:35 Dose: 100 mls/hr Levofloxacin/Dextrose 500 mg/ (Premix) 100 mls @ 100 mls/hr IV Q24H [facility] Lactated Ringer's (Ringers, Lactated) 1,000 mls @ 75 mls/hr IV ASDIRECTED [facility] Iopamidol (Isovue-300 (61%)) 100 ml IVPUSH ONETIME ONE Stop: 01/11/18 10:12 Last Admin: 01/11/18 10:32 Dose: 100 ml Levothyroxine Sodium (Synthroid) 100 mcg PO DAILY [facility] Last Admin: 01/11/18 07:31 Dose: 100 mcg Montelukast Sodium (Singulair) 10 mg PO ONETIME ONE Stop: 01/10/18 23:01 Last Admin: 01/10/18 23:04 Dose: 10 mg Simvastatin (Zocor) 20 mg PO ONETIME ONE Stop: 01/10/18 23:01 Last Admin: 01/10/18 23:04 Dose: 20 mg Warfarin Sodium (Coumadin) 5 mg PO ONETIME ONE Stop: 01/10/18 22:01 Last Admin: 01/10/18 23:04 Dose: 5 mg - Exam Quality Assessment: Supplemental Oxygen General: Alert, Oriented HEENT: Pupils Equal, Pupils Reactive, EOMI, Mucous Membr. Moist/[place] Neck: Supple Lungs: Decreased Breath Sounds, Crackles, Wheezing Cardiovascular: Regular Rate, Irregular Rhythm GI/Abdominal Exam: Normal Bowel Sounds, Soft, Non-Tender, No Organomegaly, No Distention, No Abnormal Bruit, No Mass, Pelvis Stable (Male) Exam: Deferred Back Exam: Normal Inspection, Full Range of Motion Extremities: Normal Inspection, Normal Range of Motion, Non-Tender, No Pedal Edema, Normal Capillary Refill Peripheral Pulses: 4+: Radial (L), Radial (R) Skin: Warm, Dry, Intact Neurological: No New Focal Deficit Psy/Mental Status: Alert, Normal Affect, Normal Mood - Problem List Review Problem List Initiated/Reviewed/Updated: Yes - My Orders Last 24 Hours: My Active Orders 01/11/18 09:41 PE Chest [Ang Chest] [CT] Stat 01/11/18 20:00 Levofloxacin/Dextrose 5%-Water [Levaquin in D5W 250 MG/50 ML] 250 mg Premix Bag 1 bag IV Q24H - Plan Plan:: 82-year-old male patient with a past medical history of coronary artery disease , COPD, hypothyroidism, chronic atrial fibrillation, and heart failure is admitted to the observation unit at [facility] for right lung infiltrate, leukocytosis, and weakness. The patient will be started on gentle IV fluid rehydration given his history of heart failure. The patient's last echocardiogram from November 2017 showed an EF of 55%. We will start the patient on levofloxacin every 24 hours IV. We'll continue the patient's home medications. We will recheck blood work in the morning. Dual nebs every 4 hours. DVT prophylaxis will continue the patient on his Coumadin. The patient's INR today was 1.9. We'll continue the same dose of Coumadin. We will recheck INRs daily. The patient needs to ambulate every couple of hours. We will also do incentive spirometry with cough and deep breathing. I do not anticipate an admission greater than 48 hours. The patient is a full code per his wishes. The patient does wish to be transferred to a high-level care should the need arise.
[2018-01-11] MEDS: ALPRAZOLAM 0.5 MG PO PRN (22:00)
[2018-01-12] MEDS: Lactated Ringers 1,000 ML IV SCH (02:57)
[2018-01-12] MEDS: Albuterol/Ipratropium 3.0-0.5 MG/3 ML Neb Soln NEB SCH ×3 (03:00→11:25)
[2018-01-12] MEDS ORDERED: LEVOTHYROXINE 100 MCG PO SCH (07:00)
[2018-01-12 07:17] LABS: CHLORIDE,CL 105 mmol/L (98-107); SODIUM,NA 138 mmol/L (136-145)
[2018-01-12] MEDS: Phytonadione 100 MCG Tab PO SCH (07:45)
[2018-01-12] MEDS: FLECAINIDE 100 MG PO SCH (07:46)
[2018-01-12] MEDS: methylPREDNISolone Sodium Succinate 40 MG/1 ML SDV IVPUSH SCH (09:46)
[2018-01-12 10:30] VITALS: BP 124/71
[2018-01-12] MEDS ORDERED: WARFARIN 5 MG PO SCH (20:00)
== END 2018-01-12 12:00 | disposition home or self-care (01) ==
LOC: VM.ED 18:50 → SUPCPDRO 18:50 → VM.MS 20:38
PROVIDERS: ADMIT Nurse Practitioner Family; ATTEND Nurse Practitioner Family
DX: J44.1 Chronic obstructive pulmonary disease with (acute) exacerbation (principal); J15.9 Unspecified bacterial pneumonia; I48.0 Paroxysmal atrial fibrillation; I50.32 Chronic diastolic (congestive) heart failure; E78.00 Pure hypercholesterolemia, unspecified; F41.9 Anxiety disorder, unspecified; Z79.899 Other long term (current) drug therapy; Z79.01 Long term (current) use of anticoagulants; Z88.0 Allergy status to penicillin; Z88.1 Allergy status to other antibiotic agents; Z88.2 Allergy status to sulfonamides; Z88.8 Allergy status to other drugs, medicaments and biological substances
CPT/HCPCS: 36415; 71045; 71275; 80048; 80053; 81001; 83605; 83735; 85025; 85379; 85610; 86140; 87040; 87804; 93005; 93010; 94640; 94760; 96361; 96365; 96366; 96375; 96376; 97161-GP; 99285; 99285-GF; A9270-GY; G0378; J1956; J2920; J7030; J7050; J7120; Q9967

== ENCOUNTER 2018-01-24 10:19 | Inpatient (IN) | payer MEDICARE, BC ==
[2018-01-24] MEDS ORDERED: Furosemide 20 MG/2 ML VIAL ONE (10:34)
[2018-01-24] MEDS ORDERED: Furosemide 20 MG/2 ML VIAL IV ONE (11:07)
[2018-01-24] MEDS ORDERED: methylPREDNISolone Sodium Succinate 125 MG/2 ML SDV ONE (11:12)
[2018-01-24] MEDS ORDERED: Albuterol/Ipratropium 3.0-0.5 MG/3 ML Neb Soln ONE (11:12)
[2018-01-24] MEDS ORDERED: Albuterol/Ipratropium 3.0-0.5 MG/3 ML Neb Soln NEB ONE (11:19)
[2018-01-24] MEDS ORDERED: methylPREDNISolone Sodium Succinate 125 MG/2 ML SDV IVPUSH ONE (11:20)
--- NOTE | 2018-01-24 11:38 | EDM.PDOC ---
ED HPI GENERAL MEDICAL PROBLEM - General Chief Complaint: Respiratory Problem Stated Complaint: SOB Time Seen by Provider: 01/24/18 10:19 Source of Information: Reports: Patient, Family - History of Present Illness INITIAL COMMENTS - FREE TEXT/NARRATIVE: Patient comes in with a two-week history of chest congestion and shortness of breath. Patient has been treated in the outpatient setting for pneumonia. Has been on 2 different antibiotics. First on Levaquin and then switched over to doxycycline and also started on steroid. Patient comes in today with worsening symptoms or shortness of breath. This started yesterday. The patient called the clinic yesterday and the clinic advised seeking emergency room attention if symptoms progress or continue. Patient's not had an appetite yesterday or today and is having difficulty completing ADLs due to the shortness of breath. Denies any fever, nausea,vomiting, diarrhea, or chest pain. Onset: Today Neck Pain Score (Numeric/FACES): 6 - Related Data Allergies Allergy/AdvReac Type Severity Reaction Status Date / Time aspirin Allergy Respiratory Verified 01/24/18 11:22 Distress lisinopril Allergy Wheezing Verified 01/24/18 11:22 Penicillins Allergy Cannot Verified 01/24/18 11:22 Remember Sulfa (Sulfonamide Allergy Cannot Verified 01/24/18 11:22 Antibiotics) Remember Tetracyclines Allergy Cannot Verified 01/24/18 11:22 Remember Home Meds: Home Meds Flecainide [Tambocor] 50 mg PO BID 09/22/13 [History] Montelukast [Singulair] 10 mg PO DAILY 09/22/13 [History] Simvastatin [Zocor] 20 mg PO BEDTIME 09/22/13 [History] ALPRAZolam [Alprazolam] 0.5 mg PO BEDTIME PRN 08/10/17 [History] Albuterol Sulfate [Ventolin Hfa] 2 puff IH Q4HR PRN 08/10/17 [History] Cholecalciferol (Vitamin D3) [Vitamin D3] 2,000 unit PO DAILY 08/10/17 [History] Cyanocobalamin (Vitamin B-12) [B-12] 1,000 mcg PO DAILY 08/10/17 [History] FLUoxetine HCl [Fluoxetine HCl] 40 mg PO DAILY 08/10/17 [History] Hydrocodone/Acetaminophen [Hydrocodon-Acetaminophn 10-325] 1 each PO Q4HR PRN [History] Levothyroxine Sodium [Synthroid] 100 mcg PO DAILY 08/10/17 [History] Phytonadione [Vitamin K] 100 mcg PO DAILY 08/10/17 [History] Iobxwhwoyuzmzff-Hbdphku-Jqqwji 10 ml PO Q4H PRN 08/10/17 [History] Warfarin [Coumadin] 5 mg PO SUTUWETHSA 08/10/17 [History] Albuterol/Ipratropium [DuoNeb 3.0-0.5 MG/3 ML] 3 ml NEB QIDRT neb 08/12/17 [Rx] Doxycycline Hyclate 100 mg PO BID 01/24/18 [History] Prednisone [IJD: predniSONE] 20 mg PO WITHBREAKFAST 01/24/18 [History] Warfarin [Coumadin] 7.5 mg PO MOFR 01/24/18 [History] Past Medical History HEENT History: Reports: Allergic Rhinitis Cardiovascular History: Reports: Afib, Heart Failure, Heart Murmur, High Cholesterol Other Cardiovascular History: Bad valve Respiratory History: Reports: Asthma, Bronchitis, Recurrent, COPD Gastrointestinal History: Reports: Colon Polyp Musculoskeletal History: Reports: Other (See Below) Other Musculoskeletal History: Kyphosis Neurological History: Reports: Headaches, Chronic Psychiatric History: Reports: Anxiety - Past Surgical History GI Surgical History: Reports: Colonoscopy, Polypectomy Social & Family History - Family History Family Medical History: Noncontributory - Tobacco Use Smoking Status *Q: Never Smoker Used Tobacco, but Quit: No Second Hand Smoke Exposure: No - Caffeine Use Caffeine Use: Reports: Tea - Alcohol Use Days Per Week of Alcohol Use: 7 Number of Drinks Per Day: 1 Total Drinks Per Week: 7 - Recreational Drug Use Recreational Drug Use: No Drug Use in Last 12 Months: No - Living Situation & Occupation Living situation: Reports: , with Spouse Occupation: Retired ED ROS GENERAL - Review of Systems Review Of Systems: See Below Constitutional: Reports: Malaise, Weakness, Fatigue Respiratory: Reports: Shortness of Breath, Wheezing, Cough Cardiovascular: Reports: No Symptoms GI/Abdominal: Reports: No Symptoms Musculoskeletal: Reports: No Symptoms Skin: Reports: No Symptoms Neurological: Reports: No Symptoms Psychiatric: Reports: No Symptoms Hematologic/Lymphatic: Reports: No Symptoms ED EXAM, GENERAL - Physical Exam Exam: See Below Exam Limited By: No Limitations General Appearance: Alert, WD/WN, No Apparent Distress Respiratory/Chest: Respiratory Distress, Decreased Breath Sounds, Crackles, Rhonchi Cardiovascular: Normal Peripheral Pulses, Tachycardia GI/Abdominal: Normal Bowel Sounds, Soft, No Distention, No Abnormal Bruit Extremities: Normal Inspection, Normal Range of Motion Neurological: Alert, Oriented Psychiatric: Normal Affect, Normal Mood Skin Exam: Warm, Dry, Intact EKG INTERPRETATION Rhythm: A-Fib Course - Vital Signs Last Recorded V/S: Last Vital Signs Temp 36.5 C 01/24/18 10:30 Pulse 92 01/24/18 10:30 Resp 24 H 01/24/18 10:30 BP 120/76 01/24/18 10:30 Pulse Ox 92 L 01/24/18 10:30 - Orders/Labs/Meds Orders: Active Orders 24 hr Category Date Time Status EKG 12 Lead [EKG Documentation Completion] [RC] STAT Care 01/24/18 11:09 Active RT Aerosol Therapy [RC] ASDIRECTED Care 01/24/18 11:19 Active Chest 1V Frontal [CR] Stat Exams 01/24/18 10:57 Taken Labs: Laboratory Tests 01/24/18 01/24/18 01/24/18 Range/Units 11:35 11:35 11:35 WBC 12.0 H (4.0-10.0) x10^3/uL RBC 4.12 L (4.5-6.0) x10^6/uL Hgb 13.5 L D (14.0-18.0) g/dL Hct 40.2 (40.0-52.0) % MCV 97.6 H (78.0-93.0) fL MCH 32.8 H (26.0-32.0) pg MCHC 33.6 (32.0-36.0) g/dL RDW Coeff of Bharati 13.7 (10.0-15.0) % Plt Count 311 D (130-400) x10^3/uL Neut % (Auto) 74.5 (50.0-80.0) % Lymph % (Auto) 10.4 L (25.0-50.0) % [place] % (Auto) 13.9 H (2.0-11.0) % Eos % (Auto) 1.0 (0.0-4.0) % Baso % (Auto) 0.2 (0.2-1.2) % PT (9.8-11.8) SEC INR (2.0-3.5) Sodium 132 L (136-145) mmol/L Potassium 3.9 (3.5-5.1) mmol/L Chloride 96 L (98-107) mmol/L Carbon Dioxide 29 (21-32) mmol/L Anion Gap 10.9 BUN 19 H (7-18) mg/dL Creatinine 0.9 (0.70-1.30) mg/dL Est Cr Clr Drug Dosing 59.11 mL/min Estimated GFR (MDRD) > 60 Glucose 93 (74-106) mg/dL Lactic Acid 1.9 (0.4-2.0) mmol/L Calcium 8.7 (8.5-10.1) mg/dL POC Troponin I (0.00-0.08) ng/mL NT-Pro-B Natriuret Pep 2263 H (<=450) pg/mL 01/24/18 01/24/18 Range/Units 11:35 11:38 WBC (4.0-10.0) x10^3/uL RBC (4.5-6.0) x10^6/uL Hgb (14.0-18.0) g/dL Hct (40.0-52.0) % MCV (78.0-93.0) fL MCH (26.0-32.0) pg MCHC (32.0-36.0) g/dL RDW Coeff of Bharati (10.0-15.0) % Plt Count (130-400) x10^3/uL Neut % (Auto) (50.0-80.0) % Lymph % (Auto) (25.0-50.0) % [place] % (Auto) (2.0-11.0) % Eos % (Auto) (0.0-4.0) % Baso % (Auto) (0.2-1.2) % PT 21.8 H (9.8-11.8) SEC INR 2.1 (2.0-3.5) Sodium (136-145) mmol/L Potassium (3.5-5.1) mmol/L Chloride (98-107) mmol/L Carbon Dioxide (21-32) mmol/L Anion Gap BUN (7-18) mg/dL Creatinine (0.70-1.30) mg/dL Est Cr Clr Drug Dosing mL/min Estimated GFR (MDRD) Glucose (74-106) mg/dL Lactic Acid (0.4-2.0) mmol/L Calcium (8.5-10.1) mg/dL POC Troponin I 0.01 (0.00-0.08) ng/mL NT-Pro-B Natriuret Pep (<=450) pg/mL Meds: Medications Discontinued Medications Generic Name Dose Route Start Last Admin Trade Name Freq PRN Reason Stop Dose Admin Albuterol/Ipratropium Confirm 01/24/18 11:12 01/24/18 11:15 Duoneb 3.0-0.5 Mg/3 Ml Administered 01/24/18 11:13 3 ml Dose Administration 3 ml .ROUTE .STK-MED ONE Albuterol/Ipratropium 3 ml 01/24/18 11:19 01/24/18 11:20 Duoneb 3.0-0.5 Mg/3 Ml NEB 01/24/18 11:20 Not Given ONETIME ONE Furosemide Confirm 01/24/18 10:34 01/24/18 10:37 Lasix Administered 01/24/18 10:35 20 mg Dose Administration 20 mg .ROUTE .STK-MED ONE Furosemide 20 mg 01/24/18 11:07 01/24/18 11:15 Lasix IV 01/24/18 11:08 Not Given ONETIME ONE Methylprednisolone Sodium Succinate Confirm 01/24/18 11:12 01/24/18 11:15 Solu-Medrol Administered 01/24/18 11:13 125 mg Dose Administration 125 mg .ROUTE .STK-MED ONE Methylprednisolone Sodium Succinate 125 mg 01/24/18 11:20 01/24/18 11:21 Solu-Medrol IVPUSH 01/24/18 11:21 Not Given ONETIME ONE Departure - Departure Time of Disposition: 12:10 Disposition: Admitted As Inpatient 64 Condition: Good Clinical Impression: COPD (chronic obstructive pulmonary disease) Qualifiers: COPD type: COPD with acute exacerbation Qualified Code(s): J44.1 - Chronic obstructive pulmonary disease with (acute) exacerbation CHF (congestive heart failure) Qualifiers: Heart failure type: unspecified Heart failure chronicity: acute on chronic Qualified Code(s): I50.9 - Heart failure, unspecified - Discharge Information - Problem List Review Problem List Initiated/Reviewed/Updated: Yes - My Orders Last 24 Hours: My Active Orders 01/24/18 10:57 Chest 1V Frontal [CR] Stat 01/24/18 11:09 EKG 12 Lead [EKG Documentation Completion] [RC] STAT - Assessment/Plan Last 24 Hours: My Active Orders 01/24/18 10:57 Chest 1V Frontal [CR] Stat 01/24/18 11:09 EKG 12 Lead [EKG Documentation Completion] [RC] STAT Assessment:: 1. Shortness of breath Plan: 1. Labs completed and reviewed with pt in the ER 2. X-ray completed and reviewed with the patient ER 3. duoneb completed in ER to help with shortness of breath 4. Lasix given in ER for fluid overload 5. Solumedrol given in ER for decrease breath sounds and shortness of breath 6. Dr. Ventura will admit to acute care for further management of COPD exacerbation and fluid overload
[2018-01-24 12:08] LABS: CHLORIDE,CL 96 mmol/L (98-107); SODIUM,NA 132 mmol/L (136-145)
[2018-01-24] MEDS ORDERED: Acetaminophen 325 MG Tab PO PRN (12:25)
[2018-01-24] MEDS ORDERED: Albuterol 0.083% 2.5 MG/3 ML Neb Soln NEB PRN (12:32)
[2018-01-24] MEDS ORDERED: ALPRAZolam 0.5 MG Tab PO PRN (12:34)
[2018-01-24] MEDS ORDERED: Albuterol/Ipratropium 3.0-0.5 MG/3 ML Neb Soln NEB SCH (13:00)
[2018-01-24] MEDS: Furosemide 20 MG/2 ML VIAL IV SCH ×2 (14:44→15:08)
[2018-01-24] MEDS ORDERED: Morphine 2 MG/ML Syringe IVPUSH PRN (17:06)
[2018-01-24] MEDS ORDERED: LORazepam 2 MG/ML SDV IVPUSH ONE (17:06)
[2018-01-24 17:16] VITALS: BP 143/83
--- NOTE | 2018-01-24 18:45 | HP ---
REASON FOR ADMISSION: Respiratory distress. HISTORY: This is an 82-year-old white male, who I was asked to assess in the emergency room by the ED provider with recurrent worsening symptoms of respiratory distress. He was hospitalized at [facility] on 01/10/2018 with pneumonia and apparently was in his right lower lobe. He was treated with IV Levaquin, respiratory medications, and discharged after a couple of days. He was continued on Levaquin as an outpatient. He was seen earlier this week in the clinic in a couple of times, the last time was this past . He seemed to be slowly improving. He was told his labs were improving. At some point in time, he was stable, was changed to doxycycline, which he has been taking for maybe a day. He contacted Dr. Conteh yesterday because of increasing symptoms and she recommended just monitor his symptoms and if he got worse to come to the emergency room. He presents today with his with increasing shortness of breath, cough productive of [id number] mucus congestion. He has not had a fever. Denies any chest pain. reports, he has poor appetite, has not been eating well. Also some constipation. He was hospitalized on 07/2017, again with a pneumonia and treated with Levaquin with apparent resolution. PAST MEDICAL HISTORY: 1. Chronic obstructive pulmonary disease. 2. Congestive heart failure-ejection fraction preserved, last echocardiogram 55% ejection fraction, valvular heart disease, presumed mitral regurgitation. 3. Hypothyroidism. 4. Chronic atrial fibrillation on Coumadin. 5. History of ruptured left Achilles tendon. 6. Cervical spine fusion surgery for arthritis with persistent chronic pain in his cervical spine. HOME MEDICATIONS: 1. Doxycycline 100 mg b.i.d. 2. Albuterol inhaler q.4 hours p.r.n. 3. Alprazolam 0.5 mg at bedtime p.r.n. 4. Singulair 10 mg daily. 5. Levothyroxine 100 mcg daily. 6. Hydrocodone 10/325 q.4 hours p.r.n. chronic pain. 7. Flecainide 50 mg b.i.d. for his atrial fibrillation. 8. Fluoxetine 40 mg daily. 9. Vitamin B12 of 1000 mcg daily. 10.Vitamin D3 of 2000 units daily. 11.DuNebs q.i.d. scheduled. 12.Simvastatin 20 mg daily. 13.Cough syrup. 14.Prednisone was decreased to 20 mg daily recently. 15.Vitamin K 100 mcg daily. 16.Warfarin as directed. ALLERGIES: Include aspirin, lisinopril, penicillin, sulfa, and tetracyclines. HABITS: Tobacco use is negative. REVIEW OF SYSTEMS: Some chronic cervical neck pain. He does have kyphosis. No abdominal pain. No nausea or vomiting. Some constipation noted. No change in urinary habits. has not noted any increased swelling. Appetite has been poor. OBJECTIVE: General: He is alert with respiratory distress. Vital Signs: Temperature is 97.7, pulse is 92, blood pressure is 120/76, respirations are 24, and O2 sats are 92 on 2 liters. HEENT: Pupils are unremarkable. TMs are negative. Throat clear. Neck: No adenopathy, decreased range of motion. Heart: Irregularly regular with a systolic murmur. Lungs: Decreased breath sounds and diffuse rhonchi. Abdomen: Soft and nontender. No masses. No hepatosplenomegaly noted. Normoactive bowel sounds. Extremities: Have a good range of motion. They are warm and dry. No edema. Neurologic: Deep tendon reflexes are symmetrical. Sensation intact. LABORATORY: His white count is 12,000. This is decreased from previous labs. Hemoglobin stable 13.5, INR 2.1. Sodium is 132, potassium 3.9, creatinine is 0.9, glucose of 93, lactic acid 1.9. Troponin is negative. ProBNP elevated 12/02/1962. Chest. X-RAY: Shows some blunting of the costophrenic angles. No infiltrate or effusion. No signs of pneumonia, some cardiomegaly, no pulmonary vascular changes read by [facility]. EKG shows atrial fibrillation, rate of 92, left anterior fascicular block. No acute changes noted. TREATMENT IN EMERGENCY ROOM: He was given 20 mg of Lasix per ER and then given DuoNebs and Solu-Medrol 125 mg IV push. ASSESSMENT: Chronic obstructive pulmonary disease-acute exacerbation. Congestive heart failure with a preserved ejection fraction. Recent community-acquired pneumonia. PLAN: The patient will be admitted to acute care status. He meets criteria for acute care. Anticipate admission for greater than 96-48 hours. Keep him on his DuoNebs q.6 hours. Add albuterol q.2 hours p.r.n. Continue Solu-Medrol 80 mg q.12 hours. Hold his p.o. prednisone. Hold his oral doxycycline secondary to tetracycline allergy. We will hold off on antibiotics at this time. Monitor his condition. Continue some IV Lasix. Monitor his labs in the morning. He identifies Dr. Zoie Conteh as his primary provider. He is a code level 1. FM: 01/24/2018 12:57:38 MODL: 01/24/2018 18:36:52 /[id number]
[2018-01-24] MEDS ORDERED: Flecainide 50 MG Tab PO SCH (20:00)
[2018-01-24] MEDS ORDERED: Simvastatin 20 MG Tab PO SCH (20:00)
[2018-01-24] MEDS ORDERED: methylPREDNISolone Sodium Succinate 40 MG/1 ML SDV IVPUSH SCH (23:00)
[2018-01-25] MEDS ORDERED: Phytonadione 100 MCG Tab PO SCH (08:00)
[2018-01-25] MEDS ORDERED: Cyanocobalamin (Vitamin B12) 1,000 MCG Tab PO SCH (08:00)
[2018-01-25] MEDS ORDERED: Cholecalciferol (Vitamin D3) 1,000 Unit Tab PO SCH (08:00)
[2018-01-25] MEDS ORDERED: FLUoxetine 20 MG Cap PO SCH (08:00)
[2018-01-25] MEDS ORDERED: Levothyroxine 100 MCG Tab PO SCH (08:00)
[2018-01-25] MEDS ORDERED: Montelukast 10 MG Tab PO SCH (08:00)
--- NOTE | 2018-01-26 08:21 | DISCH ---
TRANSFER SUMMARY FINAL DIAGNOSES: 1. Respiratory failure-hypoxic. 2. Chronic obstructive pulmonary disease acute exacerbation. 3. Congestive heart failure with preserved ejection fraction. 4. Chronic atrial fibrillation. HISTORY: An 82-year-old white male admitted this morning. Please see my earlier history and physical dictation for details. The patient was admitted with respiratory distress secondary to COPD exacerbation. He had been hospitalized for pneumonia about 2 weeks ago. This does seem to be improved. Due to the symptoms, he was brought in by . In the emergency room, he received Lasix 20 mg IV, DuoNeb, and IV Solu-Medrol 125 mg IV. HOSPITAL COURSE: He was admitted to acute care status. Continue with his DuoNeb q.6 hours. Continue with albuterol nebulized q.2 hours as needed. Continue with Solu-Medrol 80 mg b.i.d. and Lasix 20 mg b.i.d. His home medications were continued except his doxycycline was held. His condition continued to gradually deteriorate during his hospital stay. His O2 sats were dropping and his respiratory effort was getting worse. He was using accessory muscles for breathing. A blood gas was obtained and that showed a pO2 of 50, pCO2 of 41, and pH of 7.43, bicarb of 28. At that point, he was placed on BiPAP. He had difficulty tolerating this, but with this, his O2 sats did improve up into the mid 90 range on FiO2 of 36% with settings of the BiPAP of 10/5. At that point, it was felt that he would best be served by transfer to [place]. The family was agreeable with this. LABORATORY DATA: On admission, white count of 12.0, hemoglobin 13.5. D-dimer was negative. INR was 2.1. Blood gases have been reported. Sodium 132, potassium 3.5. Lactic acid 1.9. Troponin negative. ProBNP is 2263. DISPOSITION: I contacted [facility], talked to the hospitalist, Dr. Lau. Situation discussed with him. He agreed to accept the patient in transfer. The patient was transferred to [facility] by ALS ambulance with BiPAP in place. Tele form completed. Duration of discharge day evaluation greater than 30 minutes. FM: 01/24/2018 17:40:40 MODL: 01/24/2018 18:55:59 /[id number]
[2018-01-26] MEDS ORDERED: Warfarin 2.5 MG Tab PO SCH (20:00)
== END 2018-01-24 17:36 | disposition short-term general hospital (02) | DRG 190 ==
LOC: VM.ED 10:19 → VM.MS 12:05
PROVIDERS: ADMIT Family Medicine; ATTEND Family Medicine
PROC: 5A09357 Assistance with Respiratory Ventilation, Less than 24 Consecutive Hours, Continuous Positive Airway Pressure (ICD-10-PCS; principal; 2018-01-24)
DX: J44.1 Chronic obstructive pulmonary disease with (acute) exacerbation (principal); J18.9 Pneumonia, unspecified organism; I48.91 Unspecified atrial fibrillation; I50.9 Heart failure, unspecified; J96.91 Respiratory failure, unspecified with hypoxia; I50.32 Chronic diastolic (congestive) heart failure; R53.81 Other malaise; R01.1 Cardiac murmur, unspecified; M40.209 Unspecified kyphosis, site unspecified; R51 Headache; R53.1 Weakness; R53.83 Other fatigue; R06.03 Acute respiratory distress; R06.02 Shortness of breath; E78.00 Pure hypercholesterolemia, unspecified; I34.0 Nonrheumatic mitral (valve) insufficiency; E03.9 Hypothyroidism, unspecified; I48.2 Chronic atrial fibrillation; F41.9 Anxiety disorder, unspecified; M40.202 Unspecified kyphosis, cervical region; K59.00 Constipation, unspecified; J44.0 Chronic obstructive pulmonary disease with (acute) lower respiratory infection; J30.9 Allergic rhinitis, unspecified; G89.29 Other chronic pain; Z86.010 Personal history of colon polyps; Z88.1 Allergy status to other antibiotic agents; Z88.0 Allergy status to penicillin; Z88.2 Allergy status to sulfonamides; Z88.8 Allergy status to other drugs, medicaments and biological substances; Z79.01 Long term (current) use of anticoagulants; Z79.52 Long term (current) use of systemic steroids; Z79.899 Other long term (current) drug therapy; Z98.1 Arthrodesis status
CPT/HCPCS: 36415; 71045; 80048; 83605; 83880; 84484; 85025; 85610; 93005; 94640; 94760; 96374; 96375; 99285; J1940; J2930; 36600; 51702; 82803; 85379; 94660; J2060; J2270; J7620-GY